=== PATIENT | female | born 1955 | race Caucasian/White ===

== ENCOUNTER 2017-03-16 13:48 | Emergency (ER) | payer BC, OTHER ==
[2017-03-16] MEDS ORDERED: Morphine 10 MG/ML Syringe IVPUSH ONE (14:08)
[2017-03-16] MEDS ORDERED: Sodium Chloride 0.9% 1,000 ML IV ONE ×2 (14:08→15:56)
[2017-03-16] MEDS ORDERED: Ondansetron 4 MG/2 ML SDV IVPUSH ONE ×2 (14:08→17:37)
--- NOTE | 2017-03-16 14:15 | EDM.PDOC ---
ED HPI GENERAL MEDICAL PROBLEM - General Chief Complaint: Abdominal Pain Stated Complaint: abdominal pain Time Seen by Provider: 03/16/17 14:00 Source of Information: Reports: Patient, Family History Limitations: Reports: No Limitations - History of Present Illness INITIAL COMMENTS - FREE TEXT/NARRATIVE: patient has had 5 years of intermittent abdominal pain that is located in the epigastric area and radiates to the back. having a recurrent episode for the last few hours. H/O x 4, gastric bypass 9 years ago, ER w/u at different hospitals x 2, a negative HIDA 4 years ago, a negative CT scan 11/21, a negative colonoscopy 4 years ago. Onset: Gradual Onset Date: 03/16/17 Duration: Hour(s): (few) Location: Reports: Abdomen Quality: Reports: Ache Severity: Severe Improves with: Reports: None Worsens with: Reports: None Associated Symptoms: Reports: Nausea/Vomiting (nausea) Right Middle Anterior Abdominal Pain Score (Numeric/FACES): 10 - Related Data Allergies Allergy/AdvReac Type Severity Reaction Status Date / Time No Known Drug Allergies Allergy Cannot Verified 03/16/17 14:45 Remember Home Meds: Home Meds Aspirin 81 mg PO DAILY 03/16/17 [History] Calcium Carbonate/Vitamin D3 [Calcium 1,000 + D3 Caplet] 1 tab PO DAILY [History] Diltiazem [Cardizem CD] 120 mg PO DAILY 03/16/17 [History] Multivitamin [Multivitamins] 1 tab PO DAILY 03/16/17 [History] atorvaSTATin [Lipitor] 20 mg PO DAILY 03/16/17 [History] ED ROS GENERAL - Review of Systems Review Of Systems: ROS reveals no pertinent complaints other than HPI. : Reports: Other (urine was a funny orange color last week) ED EXAM, GI/ABD - Physical Exam Exam: See Below Exam Limited By: No Limitations General Appearance: Alert, WD/WN, Moderate Distress Eyes: Bilateral: Normal Appearance, EOMI Ears: Normal External Exam Nose: Normal Inspection, Normal Mucosa, No Blood Throat/Mouth: Normal Inspection, Normal Oropharynx, No Airway Compromise Head: Atraumatic, Normocephalic Neck: Normal Inspection, Supple, Non-Tender, Full Range of Motion Respiratory/Chest: No Respiratory Distress, Lungs Clear, Normal Breath Sounds, No Accessory Muscle Use Cardiovascular: Normal Peripheral Pulses, Regular Rate, Rhythm GI/Abdominal: Normal Bowel Sounds, Soft, Non-Tender Back Exam: Normal Inspection, Full Range of Motion Extremities: Normal Inspection, Normal Range of Motion, Non-Tender, Slow Capillary Refill Neurological: Alert, Oriented, CN II-XII Intact, Normal Cognition, Normal Gait, No Motor/Sensory Deficits Psychiatric: Normal Affect, Normal Mood Skin Exam: Warm, Dry, Intact, Normal Color, No Rash Lymphatic: No Adenopathy Course - Vital Signs Last Recorded V/S: Last Vital Signs Temp 35.9 C 03/16/17 14:33 Pulse 87 03/16/17 14:33 Resp 20 03/16/17 14:33 BP 158/75 H 03/16/17 14:33 Pulse Ox 92 L 03/16/17 14:33 - Orders/Labs/Meds Orders: Active Orders 24 hr Category Date Time Status EKG Documentation Completion [RC] ASDIRECTED Care 03/16/17 14:08 Active Abdomen Ltd [US] Stat Exams 03/16/17 14:08 Ordered Abdomen Pelvis w Cont [CT] Stat Exams 03/16/17 14:32 Taken Piperacillin/Tazobactam/Dext [Zosyn in Dextrose Iso- Med 03/16/17 17:11 Ordered Osmotic 3.375 GM] 3.375 gm Premix Bag 1 bag IV ONETIME Sodium Chloride 0.9% [Normal Saline] 1,000 ml Med 03/16/17 15:56 Active IV .BOLUS EKG 12 Lead [EK] Stat Ther 03/16/17 14:07 Ordered Medication Orders Sodium Chloride (Normal Saline) 1,000 mls @ 500 mls/hr IV .BOLUS ONE Stop: 03/16/17 17:55 Last Admin: 03/16/17 15:58 Dose: 500 mls/hr Piperacillin/Tazobactam/ (Dextrose 3.375 gm/ Premix) 50 mls @ 100 mls/hr IV ONETIME ONE Stop: 03/16/17 17:40 Last Admin: 03/16/17 17:15 Dose: 100 mls/hr Labs: Laboratory Tests 03/16/17 03/16/17 03/16/17 Range/Units 14:15 14:15 15:20 WBC 19.6 H (5.0-10.0) 10^3/uL RBC 4.06 (3.80-5.50) 10^6/uL Hgb 11.7 L (12.0-16.0) g/dL Hct 34.5 L (37.0-47.0) % MCV 85.1 (82.0-92.0) fL MCH 28.8 (27.0-31.0) pg MCHC 33.8 (32.0-36.0) g/dL RDW 15.0 H (11.5-14.5) % Plt Count 337 H (150-300) 10^3/uL MPV 8.9 (7.4-10.4) fL Neut % (Auto) 86.2 H (50.0-70.0) % Lymph % (Auto) 10.4 L (20.0-40.0) % Wilkes % (Auto) 2.8 (2.0-8.0) % Eos % (Auto) 0.3 L (1.0-3.0) % Baso % (Auto) 0.3 (0.0-1.0) % Neut # (Auto) 16.9 H (2.5-7.0) 10^3/uL Lymph # (Auto) 2.0 (1.0-4.0) 10^3/uL Wilkes # (Auto) 0.5 (0.1-0.8) 10^3/uL Eos # (Auto) 0.1 (0.1-0.3) 10^3/uL Baso # (Auto) 0.1 (0.0-0.1) 10^3/uL Sodium 141 (136-145) mmol/L Potassium 4.1 (3.3-5.3) mmol/L Chloride 104 (98-115) mmol/L Carbon Dioxide 31.1 (21.0-32.0) mmol/L BUN 19 (6-25) mg/dL Creatinine 0.67 (0.51-1.17) mg/dL Est Cr Clr Drug Dosing 74.21 mL/min Estimated GFR (MDRD) > 60 mL/min Glucose 142 H (70-110) mg/dL Calcium 9.0 (8.7-10.3) mg/dL Total Bilirubin 2.4 H (0.2-1.0) mg/dL AST 120 H (15-37) U/L ALT 132 H (12-78) U/L Alkaline Phosphatase 922 H (46-116) IU/L Troponin I < 0.04 (0.00-0.070) ng/mL Total Protein 7.1 (6.4-8.2) g/dL Albumin 3.34 (3.00-4.80) g/dL Lipase 827 H (73-393) U/L Specimen Type Urincc Urine Color Dark yellow H (YELLOW) Urine Appearance Clear (CLEAR) Urine pH 6.5 (5.0-9.0) Ur Specific [place] 1.020 (1.005-1.030) Urine Protein Negative (NEGATIVE) mg/dL Urine Glucose (UA) Negative (NEGATIVE) mg/dL Urine Ketones 40 H (NEGATIVE) mg/dL Urine Occult Blood Negative (NEGATIVE) Urine Nitrite Negative (NEGATIVE) Urine Bilirubin Small H (NEGATIVE) Urine Urobilinogen 4.0 H (0.2-1.0) E.U./dL Ur Leukocyte Esterase Negative (NEGATIVE) Urine RBC 0-5 /HPF Urine WBC 0-5 /HPF Ur Epithelial Cells Few /LPF Amorphous Sediment Few (0/HPF) /HPF Urine Bacteria Few (NONE TO FEW) /HPF Meds: Medications Generic Name Dose Route Start Last Admin Trade Name Freq PRN Reason Stop Dose Admin Sodium Chloride 1,000 mls @ 500 mls/hr 03/16/17 15:56 03/16/17 15:58 Normal Saline IV 03/16/17 17:55 500 mls/hr .BOLUS ONE Administration Piperacillin/Tazobactam/ 50 mls @ 100 mls/hr 03/16/17 17:11 03/16/17 17:15 Dextrose 3.375 gm/ Premix IV 03/16/17 17:40 100 mls/hr ONETIME ONE Administration Discontinued Medications Generic Name Dose Route Start Last Admin Trade Name Freq PRN Reason Stop Dose Admin Sodium Chloride 1,000 mls @ 999 mls/hr 03/16/17 14:08 03/16/17 14:40 Normal Saline IV 03/16/17 15:08 999 mls/hr .BOLUS ONE Administration Sodium Chloride Confirm 03/16/17 15:52 03/16/17 16:01 Normal Saline Administered 03/16/17 15:53 Not Given Dose 1,000 mls @ as directed .ROUTE .STK-MED ONE Morphine Sulfate 6 mg 07/10/17 14:08 03/16/17 14:29 Morphine IVPUSH 03/16/17 14:09 6 mg ONETIME ONE Administration Ondansetron HCl 4 mg 03/16/17 14:08 03/16/17 14:25 Zofran IVPUSH 03/16/17 14:09 4 mg ONETIME ONE Administration Departure - Departure Time of Disposition: 17:28 Disposition: DC/Tfer to Acute Hospital 02 Condition: Fair Clinical Impression: Choledocholithiasis with acute cholecystitis with obstruction Pancreatitis Qualifiers: Chronicity: acute Pancreatitis type: biliary Acute pancreatitis complication: unspecified Qualified Code(s): K85.10 - Biliary acute pancreatitis without necrosis or infection - Discharge Information Referrals: Chelita Warner PA-C [Primary Care Provider] - Forms: ED Department Discharge - Problem List Review Problem List Initiated/Reviewed/Updated: Yes - My Orders Last 24 Hours: My Active Orders 03/16/17 14:07 EKG 12 Lead [EK] Stat 03/16/17 14:08 EKG Documentation Completion [RC] ASDSepior Abdomen [employer] [US] Stat 03/16/17 14:32 Abdomen Pelvis w Cont [CT] Stat 03/16/17 15:56 Sodium Chloride 0.9% [Normal Saline] 1,000 ml IV .BOLUS 03/16/17 17:11 Piperacillin/Tazobactam/Dext [Zosyn in Dextrose Iso-Osmotic 3.375 GM] 3.375 gm Premix Bag 1 bag IV ONETIME - Assessment/Plan Last 24 Hours: My Active Orders 03/16/17 14:07 EKG 12 Lead [EK] Stat 03/16/17 14:08 EKG Documentation Completion [RC] [email or web address] [US] Stat 03/16/17 14:32 Abdomen Pelvis w Cont [CT] Stat 03/16/17 15:56 Sodium Chloride 0.9% [Normal Saline] 1,000 ml IV .BOLUS 03/16/17 17:11 Piperacillin/Tazobactam/Dext [Zosyn in Dextrose Iso-Osmotic 3.375 GM] 3.375 gm Premix Bag 1 bag IV ONETIME Assessment:: Choledocolithiasis with cholecystitis and obstruction and secondary pancreatitis Plan: Transfer to [facility] for GI consult/procedure to clear the CBD stone Broad spectrum antibiotics (Zosyn begun) Fluids given (2 liters in ER)
[2017-03-16] MEDS ORDERED: Iopamidol 612 MG/ML 75 ML Bottle IV ONE (14:30)
[2017-03-16] MEDS ORDERED: Sodium Chloride 0.9% 50 ML SDV IV ONE (14:30)
[2017-03-16 14:59] VITALS: BP 158/75
[2017-03-16 15:35] LABS: CHLORIDE,CL 104 mmol/L (98-115); SODIUM,NA 141 mmol/L (136-145)
[2017-03-16] MEDS ORDERED: Sodium Chloride 0.9% 1,000 ML ONE (15:52)
[2017-03-16] MEDS ORDERED: Piperacillin/Tazobactam/Dext 3.375 GM in Premix Bag 1 BAG IV ONE (17:11)
[2017-03-16] MEDS ORDERED: Morphine 4 MG/ML Syringe IVPUSH ONE (17:37)
[2017-03-17] MEDS ORDERED: Iopamidol 612 MG/ML 75 ML Bottle IV ONE (14:35)
[2017-03-17] MEDS ORDERED: Sodium Chloride 0.9% 50 ML SDV FLUSH SCH (14:45)
== END 2017-03-16 18:00 ==
LOC: KA.ED 13:48
DX: K80.43 Calculus of bile duct with acute cholecystitis with obstruction (principal); K85.10 Biliary acute pancreatitis without necrosis or infection; Z79.82 Long term (current) use of aspirin; Z79.899 Other long term (current) drug therapy
CPT/HCPCS: 36415; 74177; 80053; 81001; 83690; 84484; 85025; 96361; 96365; 96375; 99284; J2270; J2405; J2543; J7030; 93005; Q9967

== ENCOUNTER 2021-07-08 08:50 | Day surgery (SDC) | payer OTHER, MEDICARE ==
[2021-07-08] MEDS ORDERED: Glycopyrrolate 0.2 MG/ML SDV IVPUSH ONE (08:51)
[2021-07-08] MEDS ORDERED: Propofol 200 MG/20 ML SDV IV ONE (08:51)
[2021-07-08] MEDS ORDERED: Sodium Chloride 0.9% 10 ML Syringe FLUSH PRN (09:00)
[2021-07-08] MEDS ORDERED: Lactated Ringers 1,000 ML IV SCH (09:00)
[2021-07-08] MEDS ORDERED: Lidocaine 2% 5 ML SDV ONE (09:26)
[2021-07-08] MEDS ORDERED: Propofol 200 MG/20 ML SDV ONE ×3 (09:26→11:00)
[2021-07-08] MEDS ORDERED: Midazolam 1 MG/ML 2 ML SDV ONE (09:26)
[2021-07-08 12:55] VITALS: BP 126/81; PULSE 86
--- NOTE | 2021-07-08 13:03 | PCM.PRNOTE ---
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 Verbal consent given and consent form signed. PROCEDURAL PAUSE: Completed SEDATION: Per anesthesia DESCRIPTION OF PROCEDURE: Patient was brought back to the operating room and placed in a left lateral decubitus position. Bite block placed. After adequate sedation and anesthetic was administered, endoscope was inserted into the patient's mouth and was passed easily through the esophagus and gastric pouch without difficulty. Carefully advanced past gastrojejunostomy anastomosis and through the jejunum to the extent of scope allowance and patient tolerance. Examined tissue normal appearing. 5cm hiatal hernia was present with the gastroesophageal junction at 39cm from the incisors and diaphragmatic pinch at 44cm from the incisors. Esophagus normal appearing. The scope was removed without difficulty. Patient tolerated the procedure well. No complications. Attention then placed on colonoscopy. A rectal exam was performed revealing no abnormalities. A lubricated Olympus Video Colonoscope was inserted into the rectum and air insufflation was performed. The colonoscope was advanced through the rectum, sigmoid, descending, transverse, and ascending colon without difficulties. The cecum was reached and the ileocecal valve as well as the appendiceal orifice were identified and pictorially documented. Terminal ileum intubated and inspected. After adequate visualization of the cecum, the scope was withdrawn, giving 360-degree views of the colonic mucosa and retroflexion was performed in the rectum with the following findings noted: Terminal ileium: Normal Ileocecal valve: Overall normal appearing, but slightly prominent so biopsies obtained with cold forceps to further evaluate Cecum: At least 1cm irregular polyp near ileocecal valve; given confluence with surrounding mucosa, biopsies obtained with cold forceps followed by piecemeal resection with loop; residual polypoid tissue remained but was not further resected given location and likelihood of future further intervention Ascending colon: Normal Hepatic flexure: Normal Transverse colon: Normal Splenic flexure: Normal Descending colon: Normal Sigmoid colon: Normal Rectum: Normal The scope was straightened, air suction performed, and the scope withdrawn without complication. Preparation adequacy [place] Bowel Score 7/9. IMPRESSION: Upper GI endoscopy and colonoscopy performed revealing: - 5cm hiatal hernia - Prominent ileocecal valve, pathology now pending - Cecal polyp, pathology now pending PLAN: Will contact the patient when pathology results received.
== END 2021-07-08 13:28 | disposition home or self-care (01) ==
LOC: KA.SDS 08:50
PROVIDERS: ATTEND Family Medicine
DX: D12.0 Benign neoplasm of cecum (principal); C7A.8 Other malignant neuroendocrine tumors; K44.9 Diaphragmatic hernia without obstruction or gangrene; I10 Essential (primary) hypertension; E11.9 Type 2 diabetes mellitus without complications; K21.9 Gastro-esophageal reflux disease without esophagitis; E78.5 Hyperlipidemia, unspecified; F17.210 Nicotine dependence, cigarettes, uncomplicated; E66.9 Obesity, unspecified; E55.9 Vitamin D deficiency, unspecified; Z86.73 Personal history of transient ischemic attack (TIA), and cerebral infarction without residual deficits; Z79.899 Other long term (current) drug therapy; Z98.0 Intestinal bypass and anastomosis status; Z98.890 Other specified postprocedural states
CPT/HCPCS: 00813; 88305; J2250; J2704; J3490; J7120

== ENCOUNTER 2023-02-23 00:38 | Emergency (ER) | payer OTHER, MEDICARE ==
[2023-02-23] MEDS ORDERED: Sodium Chloride 0.9% 10 ML Syringe FLUSH PRN (00:46)
[2023-02-23 01:25] LABS: BASOPHILS ABSOLUTE AUTO 0.11 10^3/uL (0.00-0.10); BASOPHILS PERCENT AUTO 0.8 % (0.0-1.0); EOSINOPHILS ABSOLUTE AUTO 0.14 10^3/uL (0.10-0.30); HEMATOCRIT 38.1 % (37.0-47.0); HEMOGLOBIN 11.7 g/dL (12.0-16.0); IMMATURE GRAN ABSOLUTE AUTO 0.05 10^3/uL (0.00-0.50); IMMATURE GRAN PERCENT AUTO 0.4 % (0.0-5.0); LYMPHOCYTES ABSOLUTE AUTO 1.93 10^3/uL (1.00-4.00); LYMPHOCYTES PERCENT AUTO 13.9 % (20.0-40.0); MEAN CORPUSCULAR HEMOGLOBIN 26.2 pg (27.0-31.0); MEAN CORPUSCULAR HGB CONC 30.7 g/dL (32.0-36.0); MEAN CORPUSCULAR VOLUME 85.4 fL (82.0-92.0); MONOCYTES ABSOLUTE AUTO 1.02 10^3/uL (0.10-0.80); MONOCYTES PERCENT AUTO 7.4 % (2.0-8.0); NEUTROPHILS ABSOLUTE AUTO 10.62 10^3/uL (2.50-7.00); NEUTROPHILS PERCENT AUTO 76.5 % (50.0-70.0); PLATELET COUNT,PLT 552 10^3/uL (150-400); RED BLOOD CELL COUNT 4.46 10^6/uL (3.80-5.50); RED CELL DISTRIBUTION WIDTH 16.7 % (11.5-14.5); WHITE BLOOD CELL COUNT,WBC 13.87 10^3/uL (5.00-10.00)
[2023-02-23] MEDS: Sodium Chloride 0.9% 1,000 ML IV ONE (01:36)
[2023-02-23] MEDS: Sodium Chloride 0.9% 1,000 ML ONE (01:36)
[2023-02-23] MEDS: Ondansetron 4 MG/2 ML SDV IVPUSH ONE ×2 (01:47→03:55)
[2023-02-23 01:48] LABS: ALBUMIN 2.32 g/dL (3.40-5.00); ANION GAP 13.1 mmol/L (5-15); BILIRUBIN TOTAL 0.5 mg/dL (0.2-1.0); CALCIUM 8.4 mg/dL (8.7-10.3); CARBON DIOXIDE,CO2 27.9 mmol/L (21.0-32.0); CREATININE 0.72 mg/dL (0.51-1.17); EST CRCL DRUG DOSING (CG) 63.68 mL/min; PROTEIN TOTAL,TP 5.9 g/dL (6.4-8.2)
[2023-02-23] MEDS: HYDROmorphone 1 MG/ML Syringe IVPUSH ONE ×2 (01:48→03:57)
[2023-02-23 01:50] LABS: APPEARANCE,URINE CLEAR (CLEAR); BILIRUBIN,URINE NEGATIVE (NEGATIVE); COLOR,URINE YELLOW (YELLOW); GLUCOSE,URINE NEGATIVE (NEGATIVE); KETONES,URINE TRACE mg/dL (NEGATIVE); LEUKOCYTE ESTERASE,URINE NEGATIVE (NEGATIVE); NITRITE,URINE NEGATIVE (NEGATIVE); OCCULT BLOOD,URINE NEGATIVE (NEGATIVE); PH,URINE 5.5 (5.0-9.0); PROTEIN,URINE NEGATIVE (NEGATIVE); UROBILINOGEN,URINE 0.2 E.U./dL (0.2-1.0)
[2023-02-23] MEDS: Iopamidol 755 Mg/ML 100 ML Bottle IV ONE (02:20)
[2023-02-23] MEDS: Sodium Chloride 0.9% 50 ML IV SCH (02:20)
[2023-02-23 04:18] VITALS: BP 136/84; PULSE 85
== END 2023-02-23 04:18 ==
LOC: KA.ED 00:38
DX: K91.30 Postprocedural intestinal obstruction, unspecified as to partial versus complete (principal); I25.10 Atherosclerotic heart disease of native coronary artery without angina pectoris; E78.00 Pure hypercholesterolemia, unspecified; I10 Essential (primary) hypertension; J44.9 Chronic obstructive pulmonary disease, unspecified; K21.9 Gastro-esophageal reflux disease without esophagitis; M19.90 Unspecified osteoarthritis, unspecified site; E66.9 Obesity, unspecified; F17.200 Nicotine dependence, unspecified, uncomplicated; Z79.82 Long term (current) use of aspirin; Z68.28 Body mass index [BMI] 28.0-28.9, adult
CPT/HCPCS: 36415; 71045; 74177; 80053; 81003; 82150; 83605; 83690; 84484; 85025; 87040; 93010; 96361; 96374; 96375; 96376; 99284; 99285-25; J1170; J2405; J3490; J7030; Q9967

== ENCOUNTER 2023-08-27 13:25 | Emergency (ER) | payer MEDICARE, OTHER ==
[2023-08-27] MEDS ORDERED: Sodium Chloride 0.9% 10 ML Syringe FLUSH PRN (13:35)
[2023-08-27 13:52] LABS: BASOPHILS ABSOLUTE AUTO 0.05 10^3/uL (0.00-0.10); BASOPHILS PERCENT AUTO 0.2 % (0.0-1.0); HEMATOCRIT 47.4 % (37.0-47.0); HEMOGLOBIN 15.3 g/dL (12.0-16.0); IMMATURE GRAN ABSOLUTE AUTO 0.09 10^3/uL (0.00-0.50); IMMATURE GRAN PERCENT AUTO 0.3 % (0.0-5.0); LYMPHOCYTES ABSOLUTE AUTO 0.78 10^3/uL (1.00-4.00); LYMPHOCYTES PERCENT AUTO 2.6 % (20.0-40.0); MEAN CORPUSCULAR HEMOGLOBIN 28.4 pg (27.0-31.0); MEAN CORPUSCULAR HGB CONC 32.3 g/dL (32.0-36.0); MEAN CORPUSCULAR VOLUME 87.9 fL (82.0-92.0); MEAN PLATELET VOLUME 11.3 fL (7.4-10.4); MONOCYTES ABSOLUTE AUTO 2.16 10^3/uL (0.10-0.80); MONOCYTES PERCENT AUTO 7.3 % (2.0-8.0); NEUTROPHILS ABSOLUTE AUTO 26.51 10^3/uL (2.50-7.00); NEUTROPHILS PERCENT AUTO 89.6 % (50.0-70.0); PLATELET COUNT,PLT 222 10^3/uL (150-400); RED BLOOD CELL COUNT 5.39 10^6/uL (3.80-5.50); RED CELL DISTRIBUTION WIDTH 16.2 % (11.5-14.5); WHITE BLOOD CELL COUNT,WBC 29.59 10^3/uL (5.00-10.00)
[2023-08-27 14:05] LABS: ALBUMIN 2.7 g/dL (3.40-5.00); ANION GAP 12.7 mmol/L (5-15); BILIRUBIN TOTAL 0.8 mg/dL (0.2-1.0); CALCIUM 9.3 mg/dL (8.7-10.3); CARBON DIOXIDE,CO2 30.2 mmol/L (21.0-32.0); CREATININE 0.56 mg/dL (0.51-1.17); EST CRCL DRUG DOSING (CG) 80.72 mL/min; POTASSIUM,K 3.9 mmol/L (3.5-5.1); PROTEIN TOTAL,TP 6.9 g/dL (6.4-8.2)
[2023-08-27] MEDS ORDERED: Sodium Chloride 0.9% 1,000 ML IV ONE (14:09)
[2023-08-27 14:22] LABS: LACTIC ACID 1.2 mmol/L (0.4-2.0)
[2023-08-27] MEDS ORDERED: Iopamidol 755 Mg/ML 100 ML Bottle IV ONE (14:37)
[2023-08-27] MEDS ORDERED: Sodium Chloride 0.9% 100 ML IV SCH (14:45)
[2023-08-27 15:09] LABS: APPEARANCE,URINE CLEAR (CLEAR); BILIRUBIN,URINE SMALL (NEGATIVE); COLOR,URINE DARK YELLOW (YELLOW); GLUCOSE,URINE NEGATIVE (NEGATIVE); KETONES,URINE 15 mg/dL (NEGATIVE); LEUKOCYTE ESTERASE,URINE NEGATIVE (NEGATIVE); NITRITE,URINE NEGATIVE (NEGATIVE); OCCULT BLOOD,URINE SMALL (NEGATIVE); PH,URINE 6.5 (5.0-9.0); PROTEIN,URINE 30 mg/dL (NEGATIVE); UROBILINOGEN,URINE 0.2 E.U./dL (0.2-1.0)
[2023-08-27] MEDS ORDERED: Ondansetron 4 MG/2 ML SDV IVPUSH ONE (15:22)
[2023-08-27] MEDS ORDERED: HYDROmorphone 1 MG/ML Syringe IVPUSH ONE (15:22)
[2023-08-27 15:23] LABS: WBC,URINE 0-5 /HPF (0-5)
[2023-08-27 15:24] LABS: BACTERIA,URINE RARE /HPF (NONE TO FEW); EPITHELIAL CELLS,URINE RARE /LPF; GRANULAR CASTS,URINE FEW
[2023-08-27] MEDS ORDERED: Cefepime 2 GM in Sodium Chloride 0.9% 50 ML IV ONE (16:16)
[2023-08-27 17:18] VITALS: BP 147/80; PULSE 97
== END 2023-08-27 17:03 ==
LOC: KA.ED 13:25
DX: R10.11 Right upper quadrant pain (principal); D72.829 Elevated white blood cell count, unspecified; R09.02 Hypoxemia; I10 Essential (primary) hypertension; E78.00 Pure hypercholesterolemia, unspecified; I25.10 Atherosclerotic heart disease of native coronary artery without angina pectoris; K21.9 Gastro-esophageal reflux disease without esophagitis; Z90.49 Acquired absence of other specified parts of digestive tract; Z90.710 Acquired absence of both cervix and uterus; Z79.82 Long term (current) use of aspirin; Z79.899 Other long term (current) drug therapy; Z86.73 Personal history of transient ischemic attack (TIA), and cerebral infarction without residual deficits
CPT/HCPCS: 36415; 71045; 71275; 80053; 81001; 83605; 83690; 83880; 84484; 85025; 85379; 87040; 93010; 96361; 96374; 96375; 99284; 99285-25; J0692; J1170; J2405; J3490; J7030; Q9967

== ENCOUNTER 2024-07-28 19:03 | Emergency (ER) | payer MEDICARE, OTHER ==
[2024-07-28] MEDS ORDERED: Sodium Chloride 0.9% 10 ML Syringe FLUSH PRN (19:37)
[2024-07-28 19:44] LABS: BASOPHILS ABSOLUTE AUTO 0.04 10^3/uL (0.00-0.10); BASOPHILS PERCENT AUTO 0.6 % (0.0-1.0); EOSINOPHILS ABSOLUTE AUTO 0.05 10^3/uL (0.10-0.30); EOSINOPHILS PERCENT AUTO 0.7 % (1.0-3.0); HEMATOCRIT 40.3 % (37.0-47.0); HEMOGLOBIN 12.6 g/dL (12.0-16.0); IMMATURE GRAN ABSOLUTE AUTO 0.01 10^3/uL (0.00-0.50); IMMATURE GRAN PERCENT AUTO 0.1 % (0.0-5.0); LYMPHOCYTES ABSOLUTE AUTO 1.43 10^3/uL (1.00-4.00); LYMPHOCYTES PERCENT AUTO 19.8 % (20.0-40.0); MEAN CORPUSCULAR HEMOGLOBIN 28.3 pg (27.0-31.0); MEAN CORPUSCULAR HGB CONC 31.3 g/dL (32.0-36.0); MEAN CORPUSCULAR VOLUME 90.4 fL (82.0-92.0); MEAN PLATELET VOLUME 10.1 fL (7.4-10.4); MONOCYTES ABSOLUTE AUTO 0.67 10^3/uL (0.10-0.80); MONOCYTES PERCENT AUTO 9.3 % (2.0-8.0); NEUTROPHILS ABSOLUTE AUTO 5.04 10^3/uL (2.50-7.00); NEUTROPHILS PERCENT AUTO 69.5 % (50.0-70.0); PLATELET COUNT,PLT 441 10^3/uL (150-400); RED BLOOD CELL COUNT 4.46 10^6/uL (3.80-5.50); RED CELL DISTRIBUTION WIDTH 14.1 % (11.5-14.5); WHITE BLOOD CELL COUNT,WBC 7.24 10^3/uL (5.00-10.00)
[2024-07-28 19:52] LABS: ALANINE AMINOTRANSFERASE,ALT 24 U/L (14-63); ALBUMIN 2.53 g/dL (3.40-5.00); ALKALINE PHOSPHATASE 470 U/L (46-116); ASPARTATE AMNIOTRANSFERASE,AST 31 U/L (15-37); BILIRUBIN TOTAL 0.5 mg/dL (0.2-1.0); BLOOD UREA NITROGEN,BUN 7 mg/dL (7-18); CALCIUM 8.4 mg/dL (8.7-10.3); CARBON DIOXIDE,CO2 31.2 mmol/L (21.0-32.0); CHLORIDE,CL 102 mmol/L (98-107); CREATININE 0.53 mg/dL (0.51-1.17); GLUCOSE RANDOM 98 mg/dL (70-140); LIPASE 15 U/L (16-77); POTASSIUM,K 3.2 mmol/L (3.5-5.1); PROTEIN TOTAL,TP 6.8 g/dL (6.4-8.2); SODIUM,NA 140 mmol/L (136-145)
[2024-07-28 20:03] LABS: ESTIMATED GFR 99 mL/min (>=60)
[2024-07-28 20:09] LABS: APPEARANCE,URINE CLEAR (CLEAR); BILIRUBIN,URINE NEGATIVE (NEGATIVE); COLOR,URINE YELLOW (YELLOW); GLUCOSE,URINE NEGATIVE (NEGATIVE); KETONES,URINE NEGATIVE (NEGATIVE); LEUKOCYTE ESTERASE,URINE NEGATIVE (NEGATIVE); NITRITE,URINE NEGATIVE (NEGATIVE); OCCULT BLOOD,URINE NEGATIVE (NEGATIVE); PROTEIN,URINE 30 mg/dL (NEGATIVE)
[2024-07-28 20:16] LABS: BACTERIA,URINE FEW /HPF (NONE TO FEW); EPITHELIAL CELLS,URINE FEW /LPF; HYALINE CASTS,URINE RARE; RBC,URINE 0-5 /HPF (0-5); WBC,URINE 0-5 /HPF (0-5)
[2024-07-28] MEDS: Ondansetron 4 MG/2 ML SDV IVPUSH ONE (20:28)
[2024-07-28] MEDS: Morphine 2 MG/ML SYRINGE IVPUSH ONE (20:28)
[2024-07-28] MEDS: Sodium Chloride 0.9% 1,000 ML IV ONE (20:29)
[2024-07-28 21:22] VITALS: BP 153/82; PULSE 76
== END 2024-07-28 21:22 | disposition home or self-care (01) ==
LOC: KA.ED 19:03
DX: M54.50 Low back pain, unspecified (principal); R11.2 Nausea with vomiting, unspecified; I10 Essential (primary) hypertension; E78.00 Pure hypercholesterolemia, unspecified; K21.9 Gastro-esophageal reflux disease without esophagitis; M19.90 Unspecified osteoarthritis, unspecified site; Z90.49 Acquired absence of other specified parts of digestive tract; Z90.710 Acquired absence of both cervix and uterus; Z79.82 Long term (current) use of aspirin; Z79.899 Other long term (current) drug therapy
CPT/HCPCS: 80053; 81001; 83690; 85025; 96361; 96374; 96375; 99284-25; J2270; J2405; J7030

== ENCOUNTER 2025-03-17 17:34 | Emergency (ER) | payer MEDICARE, OTHER ==
[2025-03-17] MEDS ORDERED: Sodium Chloride 0.9% 10 ML Syringe FLUSH PRN (18:04)
[2025-03-17] MEDS: Lactated Ringers 1,000 ML IV ONE (18:31)
[2025-03-17] MEDS: Prochlorperazine 10 MG/2 ML SDV IVPUSH ONE (18:32)
[2025-03-17 18:36] LABS: BASOPHILS ABSOLUTE AUTO 0.03 10^3/uL (0.00-0.10); BASOPHILS PERCENT AUTO 0.6 % (0.0-1.0); EOSINOPHILS ABSOLUTE AUTO 0.02 10^3/uL (0.10-0.30); EOSINOPHILS PERCENT AUTO 0.4 % (1.0-3.0); IMMATURE GRAN ABSOLUTE AUTO 0.00 10^3/uL (0.00-0.04); IMMATURE GRAN PERCENT AUTO 0.0 % (0.0-0.4); LYMPHOCYTES ABSOLUTE AUTO 0.55 10^3/uL (1.00-4.00); LYMPHOCYTES PERCENT AUTO 10.2 % (20.0-40.0); MEAN PLATELET VOLUME 10.7 fL (7.4-10.4); MONOCYTES ABSOLUTE AUTO 0.41 10^3/uL (0.10-0.80); MONOCYTES PERCENT AUTO 7.6 % (2.0-8.0); NEUTROPHILS ABSOLUTE AUTO 4.39 10^3/uL (2.50-7.00); NEUTROPHILS PERCENT AUTO 81.2 % (50.0-70.0); PLATELET COUNT,PLT 159 10^3/uL (150-400); RED BLOOD CELL COUNT 4.26 10^6/uL (3.80-5.50); RED CELL DISTRIBUTION WIDTH 14.4 % (11.5-14.5); WHITE BLOOD CELL COUNT,WBC 5.40 10^3/uL (5.00-10.00)
[2025-03-17 18:57] LABS: ALANINE AMINOTRANSFERASE,ALT 22.0 U/L (14-63); ASPARTATE AMNIOTRANSFERASE,AST 32.0 U/L (15-37); BILIRUBIN TOTAL 0.6 mg/dL (0.2-1.0); BLOOD UREA NITROGEN,BUN 15.0 mg/dL (7-18); CARBON DIOXIDE,CO2 31.5 mmol/L (21.0-32.0); CHLORIDE,CL 106.0 mmol/L (98-107); CREATININE 0.55 mg/dL (0.51-1.17); EST CRCL DRUG DOSING (CG) 81.01 mL/min; GLUCOSE RANDOM 97.0 mg/dL (70-140); POTASSIUM,K 3.7 mmol/L (3.5-5.1); PROTEIN TOTAL,TP 6.2 g/dL (6.4-8.2); SODIUM,NA 143.0 mmol/L (136-145)
[2025-03-17 18:58] LABS: ESTIMATED GFR 98.0 mL/min (>=60)
[2025-03-17 19:03] LABS: GLUCOSE,URINE NEGATIVE (NEGATIVE); OCCULT BLOOD,URINE NEGATIVE (NEGATIVE)
[2025-03-17 19:04] LABS: APPEARANCE,URINE CLEAR (CLEAR)
[2025-03-17 19:11] LABS: EPITHELIAL CELLS,URINE FEW /LPF
[2025-03-17] MEDS: Iopamidol 755 Mg/ML 100 ML Bottle IV ONE (19:20)
[2025-03-17 20:07] VITALS: PULSE 62
[2025-03-17 20:16] VITALS: BP 120/66
== END 2025-03-17 20:15 | disposition home or self-care (01) ==
LOC: KA.ED 17:34
DX: K59.01 Slow transit constipation (principal); R10.84 Generalized abdominal pain; K21.9 Gastro-esophageal reflux disease without esophagitis; Z86.73 Personal history of transient ischemic attack (TIA), and cerebral infarction without residual deficits; Z79.82 Long term (current) use of aspirin; Z79.899 Other long term (current) drug therapy
CPT/HCPCS: 74177; 80053; 81001; 83690; 85025; 87086; 96361; 96374; 96375; 99284-25; J0780; J1171; J7120; Q9967